=== PATIENT | male | born 1960 | race Caucasian/White ===

== ENCOUNTER → 2021-04-25 | Outpatient (CLI) | payer MEDICARE, OTHER ==
[~2021-04-25] MED LIST: ASPIRIN325 MG PO; AZITHROMYCIN250 MG PO; CLARITIN-D 241 EACH INH; COMBIVENT RESPIM4 GM INH; COMBIVENT0.074 GM/I INH; COREG 25MG TAB25 MG PO; CORLANOR PO; DIGOXIN250 MCG PO; DULERA 200 MCG8.8 GM INH; ENTRESTO PO; FLONASE 0.05% N16 GM; GLUCOTROL 10 MG10 MG PO; HUMALOG MI100 UNIT/4 SQ; HUMALOG100 UNIT/1 SQ; HUMULIN 70100 UNIT/1 SQ; IMDUR ER TAB 3030 MG PO; LASIX40 MG PO; METFORMIN HCL1000 M1 PO; MUCINEX600 MG PO; NEURONTIN 100100 MG PO; NITROSTAT 0.40.4 MG PO; PREDNISONE 10 M10 MG PO; PRINIVIL5 MG PO; PROAIR HFA8.5 GM INH; ROBITUSSIN DM U10 ML PO; SINGULAIR10 MG PO; SPIRIVA18 MCG INH; SPIRONOLACTONE50 MG PO; SYMBICORT 160-1 INHA INH; TESSALON PERLE100 MG PO; TOPROL XL50 MG PO
== END ==
LOC: HEART 5 08:07
DX: I20.9 Angina pectoris, unspecified (principal); I47.2 Ventricular tachycardia; I50.22 Chronic systolic (congestive) heart failure; R00.2 Palpitations; R06.02 Shortness of breath; R07.9 Chest pain, unspecified
CPT/HCPCS: 78452; A9502; J2785

== ENCOUNTER → 2022-06-09 | Outpatient (CLI) | payer MEDICARE, OTHER ==
[~2022-06-09] MED LIST changes: +ACTOS45 MG PO; +ALBUTEROL2.5 MG/3 M INH; +ALDACTONE50 MG PO; +CLARITIN-D 241 EACH PO; +DIGOXIN125 MCG PO; -DIGOXIN250 MCG PO; +ENTRESTO 24 MG1 EACH PO; +FLOMAX 0.4 MG0.4 MG PO; +FLUOXETINE HCL10 M1 PO; +FLUTICASONE-SA1 EAC4 INH; +HUMULIN 70100 UNITS/ SC; +INCRUSE ELLI62.5 MCG INH; +LANTUS100 UNIT/1 SC; +LIPITOR TAB 2020 MG PO; +MELOXICAM15 MG PO; +PROTONIX20 MG PO; +RANEXA1000 MG PO; +[UNRECOGNIZED DRUG - CODE] SC
[2022-06-09 11:56] LABS: RED BLOOD COUNT 4.41 M/UL (4.20-5.50); WHITE BLOOD COUNT 8.2 K/UL (4.5-11.0)
[2022-06-09 13:07] LABS: BUN/CREATININE RATIO 22 (0-10)
== END ==
LOC: LAB 10:53
PROVIDERS: Internal Medicine Cardiovascular Disease
DX: R94.39 Abnormal result of other cardiovascular function study (principal); I20.9 Angina pectoris, unspecified; I50.22 Chronic systolic (congestive) heart failure; I42.8 Other cardiomyopathies
CPT/HCPCS: 36415; 71046; 80048; 85025

== ENCOUNTER → 2022-06-11 | Outpatient (CLI) | payer MEDICARE, OTHER | LOC: CATH 11:05 | DX: I25.118 Atherosclerotic heart disease of native coronary artery with other forms of angina pectoris (principal); I11.0 Hypertensive heart disease with heart failure; I50.22 Chronic systolic (congestive) heart failure; J44.9 Chronic obstructive pulmonary disease, unspecified; E78.5 Hyperlipidemia, unspecified; E11.9 Type 2 diabetes mellitus without complications; Z79.82 Long term (current) use of aspirin; Z79.4 Long term (current) use of insulin; Z79.899 Other long term (current) drug therapy | CPT/HCPCS: 82962; 99152; 99153; C1769; C1894; J1644; J2250; J3010; Q9967 ==